=== PATIENT | male | born 1955 | race Caucasian/White ===

== ENCOUNTER → 2022-09-05 | Outpatient (CLI) | payer OTHER ==
--- NOTE | 2022-09-05 16:38 | Diagnostic Imaging Report ---
PROCEDURE: US Scrotum. TECHNIQUE: Multiple Real-time grayscale images were obtained over the scrotum in various projections bilaterally. INDICATION: Scrotal mass. FINDINGS: The right testicle measures 4.1 x 2.5 x 2.6 cm and the left testicle measures 3.9 x 2.4 x 2.7 cm. Both testes show homogeneous echotexture. No discrete testicular mass is detected. There is blood flow to both testes. The epididymides are unremarkable bilaterally. There are small bilateral hydroceles. No varicoceles are seen. There is a large echogenic masslike area superior to the left testicle measuring 5.9 x 3.0 x 3.8 cm. This does appear to be outside of the testicle. There does appear to be some internal vascularity as well. No other abnormalities are seen. IMPRESSION: 1. No evidence of testicular mass or vascular compromise. 2. Small bilateral hydroceles. 3. An echogenic mass superior to the left testicle is indeterminate. The possibility of herniated tissue would be a consideration. No definite herniated bowel loops are identified. CT may be useful for better characterization. Dictated by: Dictated on workstation # [id number]
== END ==
LOC: RAD 13:15
DX: Z01.89 Encounter for other specified special examinations (principal); N43.3 Hydrocele, unspecified; N50.9 Disorder of male genital organs, unspecified
CPT/HCPCS: 76870

== ENCOUNTER 2023-02-07 15:01 | Emergency (ER) | payer OTHER ==
[~2023-02-07] VITALS: Ht 170 cm; Wt 104.3 kg
--- NOTE | 2023-02-07 15:38 | ED Lower Extremity ---
General Chief Complaint: Lower Extremity Stated Complaint: LT KNEE INJ | Nursing Triage Note: pt presents to ed via pov from home with complaints of l knee pain after falling on it in the garage when he tripped. Source: patient Exam Limitations: no limitations History of Present Illness Date Seen by Provider: Feb 07, 2023 Time Seen by Provider: 15:36 Initial Comments Patient is a 67-year-old male who presents to ED with left knee pain. Pain started after he fell on his left knee Sunday in the garage. States he was getting around his truck when he tripped and fell landing on the left knee. Had immediate pain with swelling. Denies any bruises or redness. Pain appears to be worse with flexion of the knee. Pain located to the left lateral knee. Significant swelling noted. History of arthritic knees according to patient. Has been taking the Naprosyn with very minimal improvement. Denies any distal numbness and tingling, nausea, vomit, diarrhea fever, chills. Allergies and Home Medications Allergies Coded Allergies: No Known Drug Allergies (Unverified , 02/07/23) Patient Home Medication List Home Medication List Reviewed: Yes Review of Systems Constitutional: No chills, No diaphoresis, No malaise, No weakness EENTM: No ear pain, No blurred vision, No double vision Cardiovascular: No chest pain, No edema Gastrointestinal: No constipation, No diarrhea, No vomiting Genitourinary: No decreased output, No discharge Musculoskeletal: No back pain; joint pain, joint swelling; No muscle pain, No muscle stiffness Skin: No change in color All Other Systems Reviewed Negative Unless Noted: Yes Past Tggpdzn-Zzsycy-Xfwmgc Hx Patient Social History Tobacco Use?: No Substance use?: No Alcohol Use?: Yes Alcohol Frequency: Once in a while Pt feels they are or have been: No Past Medical History Surgery/Hospitalization HX: pmh: dm2, neuropathy, htn, high chol Physical Exam Vital Signs Vital Signs - First Documented 02/07/23 02/07/23 15:27 16:10 Temp 37.0 Pulse 54 Resp 18 B/P (MAP) 170/82 (111) Pulse Ox 94 O2 Delivery Room Air Capillary Refill : Less Than 3 Seconds Height, Weight, BMI Height: '" Weight: lbs. oz. kg; 36.00 BMI Method: General Appearance: WD/WN, no apparent distress HEENT: PERRL/EOMI, normal ENT inspection, TMs normal, pharynx normal Neck: non-tender, full range of motion, supple, normal inspection Cardiovascular: regular rate, rhythm, no edema, no gallop, no JVD Respiratory: chest non-tender, lungs clear, normal breath sounds, no respiratory distress, no accessory muscle use Gastrointestinal: normal bowel sounds, non tender, soft, no organomegaly Knees: left knee pain (Left lateral knee tenderness.), left knee soft tissue tenderness, left knee swelling, left knee other (No laxity with valgus or varus stress. Negative anterior posterior drawer test. Negative Ruben test) Ankles: bilateral ankle non-tender, bilateral ankle normal inspection, bilat eral ankle normal range of motion Feet: bilateral foot non-tender, bilateral foot normal inspection, bilateral foot normal range of motion Neurologic/Tendon: normal sensation, normal motor functions, normal tendon functions Progress/Results/Core Measures Results/Orders My Orders Orders - SEBASTIAN SPRAGUE Knee, Left, 3 Views (02/07/23 15:33) Vital Signs/I&O 02/07/23 02/07/23 15:27 16:10 Temp 37.0 37.0 Pulse 54 57 Resp 18 18 B/P (MAP) 170/82 (111) 164/76 Pulse Ox 94 96 O2 Delivery Room Air Blood Pressure Mean: 111 Departure Communication (PCP) Patient presents ED with left knee pain. Pain located to the left outer and upper knee. Flexion to 90 degrees with full extension. No laxity with valgus or varus stress. Negative anterior posterior drawer test. Did have appear to be soft tissue swelling. X-ray read by myself did not show any acute fracture. Radiologist did not note any acute fracture. Patient refusing thing for pain. Has been taken naproxen. Denies applying ice. Ice was applied. Has been using Edgar wrap for comfort. Feels like the knee wants to give out. Did note some arthritic changes of the left knee. Mechanism of injury does not suggest meniscus or ligament injury. Once again exam was otherwise benign with range of motion and assessment of the ligaments. Suspect more soft tissue secondary to the fall. Potential aggravation of his arthritis. If he is still continue having pain over the next 1 to 2 weeks be warranted to follow-up with orthopedic for further evaluation. May benefit with a intra-articular injection and or a re x-ray to rule out occult fracture. Bear weight as tolerated. Range of motion exercises. Return precaution were discussed Impression Primary Impression: Knee pain Disposition: 01 HOME, SELF-CARE Condition: Stable Departure-Patient Inst. Decision time for Depature: 16:05 Referrals: NO,LOCAL PHYSICIAN (PCP) Primary Care Physician NICKO DUARTE MD Patient Instructions: Knee Pain Add. Discharge Instructions: Recommend an Edgar wrap or knee brace to help for support. Ice 3-4 times throughout the day for the next 3 to 4 days help with swelling, elevate knee at night. Range of motion exercises. Anti-inflammatories. If continued pain over the next few weeks recommend orthopedic outpatient follow-up. All discharge instructions reviewed with patient and/or family. Voiced understanding. SEBASTIAN SPRAGUE Feb 07, 2023 15:38
--- NOTE | 2023-02-07 15:53 | Diagnostic Imaging Report ---
INDICATION: Fall with left knee injury and pain in the lateral portion of the left knee. TIME OF EXAM: 03:52 p.m. FINDINGS: Three views of the left knee demonstrate normal alignment. Joint spaces are fairly well maintained apart from very mild medial compartmental narrowing. The articular surfaces are smooth. No fracture, dislocation or effusion is identified. IMPRESSION: Mild degenerative changes. No acute bony abnormality is detected. Dictated by: Dictated on workstation # [id number]
[2023-02-07 16:10] VITALS: BP 164/76
== END 2023-02-07 16:11 | disposition home or self-care (01) ==
LOC: EDUNIT# 15:01 → ER 15:04
DX: M25.562 Pain in left knee (principal); W01.0XXA Fall on same level from slipping, tripping and stumbling without subsequent striking against object, initial encounter; Y92.59 Other trade areas as the place of occurrence of the external cause
CPT/HCPCS: 73562

== ENCOUNTER → 2023-03-23 | Outpatient (CLI) | payer OTHER ==
--- NOTE | 2023-03-23 15:02 | Diagnostic Imaging Report ---
MRI LT LOWER EXT JOINT W/O TECHNIQUE: Multiplanar, multisequence MR imaging of the left knee was performed without contrast. COMPARISON: None available. INDICATION: Left knee pain FINDINGS: MENISCI Medial meniscus: Normal. Lateral meniscus: Complex tear at the anterior horn of the medial meniscus extending into the anterior root. Partial extrusion of the lateral body into the gutter. LIGAMENTS ACL: Intact. PCL: Intact. MCL: Intact. LCL: The lateral collateral ligamentous complex is intact. EXTENSOR MECHANISM The extensor mechanism is intact. CARTILAGE Medial compartment: Medial compartment articular cartilage is well preserved without focal high-grade chondromalacia. Lateral compartment: The lateral compartment articular cartilage is preserved without high-grade chondromalacia. Patellofemoral compartment: Full-thickness chondral fissuring in the central trochlear groove. BONE No fracture, stress fracture or osteonecrosis. SOFT TISSUE Small knee joint effusion. No Marcelino's cyst. IMPRESSION: 1. Complex macerated tear at the anterior horn of the lateral meniscus causes partial extrusion of the body into the lateral gutter. 2. Full-thickness chondral fissuring at the central trochlear groove. Otherwise, the remainder of the articular cartilage of the knee is well-preserved. Dictated by: Dictated on workstation # [id number]
== END ==
LOC: RAD 13:15
DX: Z01.89 Encounter for other specified special examinations (principal); S83.282A Other tear of lateral meniscus, current injury, left knee, initial encounter
CPT/HCPCS: 73721

== ENCOUNTER → 2023-04-11 | Outpatient (CLI) | payer OTHER ==
[~2023-04-11] MED LIST: ACHD5005 PO; DOXA8TAB73 PO; FINA5TAB6 PO; GABA300C PO; GLIP5TAB13 PO; INSU100V42 SQ; INSU100V52 SQ; LATA2.5D22 OP; LISI40TA9 PO; LOVA40TA2 PO; METF-397 PO; NAPR220C11 PO; NIAC500T92 PO; OMEP20CA18 PO; TIMO5DRO31 OP; VALA500T7 PO
== END ==
LOC: ORTHO 10:43
PROVIDERS: ATTEND Orthopaedic Surgery
DX: S83.282A Other tear of lateral meniscus, current injury, left knee, initial encounter (principal)
CPT/HCPCS: 99203

== ENCOUNTER 2023-04-12 05:30 | Outpatient (CLI) | payer OTHER ==
[~2023-04-12] VITALS: Ht 170.2 cm; Wt 101.8 kg
[2023-04-12] MEDS ORDERED: NAPR220C11 PO (10:03)
[2023-04-12] MEDS ORDERED: GLIP5TAB13 PO (10:03)
[2023-04-12] MEDS ORDERED: FINA5TAB6 PO (10:03)
[2023-04-12] MEDS ORDERED: INSU100V42 SQ (10:03)
[2023-04-12] MEDS ORDERED: GABA300C PO (10:03)
[2023-04-12] MEDS ORDERED: DOXA8TAB73 PO (10:03)
[2023-04-12] MEDS ORDERED: ACHD5005 PO (10:03)
[2023-04-12] MEDS ORDERED: LOVA40TA2 PO (10:04)
[2023-04-12] MEDS ORDERED: LATA2.5D22 OP (10:04)
[2023-04-12] MEDS ORDERED: VALA500T7 PO (10:04)
[2023-04-12] MEDS ORDERED: METF-397 PO (10:04)
[2023-04-12] MEDS ORDERED: OMEP20CA18 PO (10:04)
[2023-04-12] MEDS ORDERED: INSU100V52 SQ (10:04)
[2023-04-12] MEDS ORDERED: LISI40TA9 PO (10:04)
[2023-04-12] MEDS ORDERED: TIMO5DRO31 OP (10:04)
[2023-04-12] MEDS ORDERED: NIAC500T92 PO (10:04)
== END 2023-04-12 10:11 | disposition home or self-care (01) ==
LOC: PREOP 05:30
PROVIDERS: ATTEND Orthopaedic Surgery
DX: Z01.818 Encounter for other preprocedural examination (principal)

== ENCOUNTER 2023-04-16 05:50 | Day surgery (SDC) | payer OTHER ==
[~2023-04-16] VITALS: Ht 170.2 cm; Wt 101.8 kg
[2023-04-16] VITALS (12 sets, daily range): BP systolic 99–126; BP diastolic 60–74
[2023-04-16] MEDS ORDERED: LACTATED RINGERS 1,000 ML IV PRN (06:00)
[2023-04-16] MEDS ORDERED: ceFAZolin INJECTION 2,000 MG in NS (IVPB) 50 ML IV ONE (06:00)
[2023-04-16] MEDS ORDERED: LIDOCAINE PF 2% 5 ML (XYLOCAINE) VIAL ONE (07:03)
[2023-04-16] MEDS ORDERED: fentaNYL INJ 100 MCG/2 ML AMP ONE (07:03)
[2023-04-16] MEDS ORDERED: proPOfol 200 MG/20 ML (DIPRIVAN) VIAL IV ONE (07:03)
[2023-04-16] MEDS ORDERED: ONDANSETRON 4 MG/2 ML (SDV) Z0FRAN ONE (07:03)
[2023-04-16] MEDS ORDERED: MIDAZOLAM 2 MG/2 ML (VERSED) VIAL ONE (07:03)
[2023-04-16] MEDS ORDERED: SEVOFLURANE (ULTANE) 15 ML INHAL SOLN ONE (07:03)
[2023-04-16] MEDS ORDERED: BUP/EPI 0.25% 1:200,000 (MARCAINE) 30 ML VIAL ONE (07:24)
--- NOTE | 2023-04-16 07:50 | Progress Note-Pre Operative ---
Pre-Operative Progress Note Date of Available H&P: Apr 11, 2023 Date H&P Reviewed: Apr 16, 2023 Time H&P Reviewed: 07:40 History & Physical: H&P Reviewed, Patient Examed, No changes noted Pre-Operative Diagnosis: Left Knee Lateral Meniscus Tear JACKSON LANGFORD MD Apr 16, 2023 07:50
[2023-04-16] MEDS ORDERED: BUP/EPI 0.25% 1:200,000 (MARCAINE) 30 ML VIAL INJ ONE (08:23)
--- NOTE | 2023-04-16 08:41 | Operative Report - Ortho ---
Operative Report Surgeon (s)/Sales Analyst (s) Surgeon JACKSON LANGFORD MD Sales Analyst n/a Pre-Operative Diagnosis Left Knee Lateral Meniscus Tear Post-Operative Diagnosis same Operative Report Date of Procedure: Apr 16, 2023 Name of Procedure Performed: Left Knee Arthroscopy with Partial Lateral Meniscectomy Description & Findings After obtaining informed consent and marking the patient in the preoperative holding area, the patient was administered IV antibiotics and taken to the operating room. General anesthesia was induced. The right lower extremity was placed in the well leg szymanski and the left leg was placed in the arthroscopic szymanski. Surgical timeout was taken. The left lower extremity was prepped and draped in the usual sterile fashion. An anterolateral portal was established and a diagnostic knee arthroscopy was performed with the following findings: the patellofemoral portion of the joint demonstrated grade II change, the patella tracked well through the trochlear groove, the gutters were free of loose bodies, the medial meniscus was intact, grade II change in the medial compartment, ACL was intact, lateral compartment with complex, mobile tear of the anterior horn of the lateral meniscus and grade II articular cartilage change. An anteromedial portal was established. Probe was inserted and the lateral meniscal tear was explored. Shaver was inserted and the lateral meniscal tear was debrided back to a stable border. Probe was reinserted and confirmed that the mensicectomy was stable. Instruments were withdrawn. Wounds were closed with 3-0 nylon and dressed with xeroform, 4x4s, ABD, cast padding, and LJ wrap. Patient tolerated the procedure well and was stable to the recovery room. Anesthesia Type General Estimated Blood Loss minimal Specimen(s) collected/removed None JACKSON LANGFORD MD Apr 16, 2023 08:41
--- NOTE | 2023-04-16 09:08 | Anesthesia-General Post-Op ---
General Patient Condition Mental Status/LOC: Same as Preop Cardiovascular: Satisfactory Nausea/Vomiting: Absent Respiratory: Satisfactory Pain: Controlled Complications: Absent Post Op Complications Complications None Follow Up Care/Instructions Patient Instructions None needed. Anesthesia/Patient Condition Patient Condition Patient is doing well, no complaints, stable vital signs, no apparent adverse anesthesia problems. No complications reported per nursing. GONZALEZ DUDLEY CRNA Apr 16, 2023 09:08
[2023-04-16] MEDS ORDERED: ONDANSETRON 4 MG/2 ML (SDV) Z0FRAN IVP PRN (09:15)
[2023-04-16] MEDS ORDERED: fentaNYL INJ 100 MCG/2 ML AMP IVP ONE (09:15)
[2023-04-16] MEDS ORDERED: HYDROcodone/APAP 5 MG/325 MG (LORTAB) TAB PO NR (10:15)
== END 2023-04-16 10:43 | disposition home or self-care (01) ==
LOC: SDC 05:50
PROVIDERS: ATTEND Orthopaedic Surgery
DX: S83.282A Other tear of lateral meniscus, current injury, left knee, initial encounter (principal); G47.33 Obstructive sleep apnea (adult) (pediatric); Z99.81 Dependence on supplemental oxygen; Z87.891 Personal history of nicotine dependence
CPT/HCPCS: 87081

== ENCOUNTER → 2023-04-26 | Outpatient (CLI) | payer OTHER ==
[~2023-04-26] MED LIST changes: +DOCU-143 PO
== END ==
LOC: ORTHO 08:39
PROVIDERS: ATTEND Orthopaedic Surgery
DX: Z53.9 Procedure and treatment not carried out, unspecified reason (principal)

== ENCOUNTER 2023-05-16 06:20 | Outpatient (CLI) | payer OTHER ==
[~2023-05-16] VITALS: Ht 170.2 cm; Wt 102.5 kg
[~2023-05-16 06:20] MED LIST changes: -DOCU-143 PO
[2023-05-16] MEDS ORDERED: DOCU-143 PO (10:15)
== END 2023-05-16 10:25 ==
LOC: PREOP 06:20
PROVIDERS: ATTEND Internal Medicine
DX: Z01.818 Encounter for other preprocedural examination (principal)

== ENCOUNTER 2023-05-25 07:56 | Day surgery (SDC) | payer OTHER ==
--- NOTE | 2023-05-16 08:10 | HISTORY AND PHYSICAL ---
PANENDOSCOPY HISTORY AND PHYSICAL HISTORY OF PRESENT ILLNESS: The patient is a 67-year-old white male referred by the [facility] for panendoscopy. He has a history of colon polyps, last colonoscopy was 5 years ago. He has 2 previous colonoscopies, both of which reported precancerous polyps were removed. He reports at least a 10-year history of reflux that is required proton pump inhibitor therapy. There were several risk factors for [facility], requested EGD evaluation for this reason. He denies melena, dysphagia, or bright red blood per rectum or change in bowel habits. PAST MEDICAL HISTORY: Significant for type 2 diabetes, under good control with A1c under 7. He is insulin requiring, taking 35 units of Lantus at bedtime and 10 units of NovoLog before he has a history of peripheral neuropathy. [ ]. PAST SURGICAL HISTORY: Significant for bilateral inguinal herniorrhaphy done. He reports roughly 40 days ago. He then underwent arthroscopic surgery of the left knee 30 days ago in later May. He will be undergoing lipoma removal from his scrotum. The patient reports no known past history of coronary artery disease or cerebrovascular disease. SOCIAL HISTORY: The patient reports occasional moderate alcohol consumption. No smoking history. 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 FAMILY HISTORY: Father at the age 78 secondary to complications of cardiomyopathy. Mother of multiple myeloma at the age of 84, he has 6 siblings, one sister of uterine cancer at age 68, had one brother who suddenly at the age of 70 and other siblings are reportedly alive and well, no history of colon cancer that he is aware of or other GI tract malignancy. PHYSICAL EXAMINATION: GENERAL: Reveals a white male, appeared to be in no acute distress. VITAL SIGNS: Weight 226 pounds, blood pressure 110/74. HEENT: Unremarkable. NECK: Revealed no JVD, adenopathy or bruits. CHEST: Clear to auscultation. CARDIOVASCULAR: Reveals a regular rate and rhythm without murmur, S3, or S4. ABDOMEN: Soft, supple without mass, organomegaly, or tenderness. EXTREMITIES: No cyanosis, clubbing or edema. ASSESSMENT AND PLAN: The patient is being set up for panendoscopy due to the past history of colon polyps as well as a longstanding history of reflux with risk factors for Boyer's and no previous history of upper endoscopy requiring chronic PPI therapy for at least the last 10 years. Prep instructions were given and questions were answered. Job ID: [id number] DocumentID: [id number] Dictated Date: 05/08/2023 11:11:48 Cnp Date: 05/08/2023 11:37:00 Dictated By: SRIRAM BLUM MD
[~2023-05-25] VITALS: Ht 177 cm; Wt 102.5 kg
[2023-05-25 07:30] VITALS: BP 143/79
[~2023-05-25 07:56] MED LIST changes: +DOCU-143 PO
[2023-05-25] MEDS ORDERED: LACTATED RINGERS 1,000 ML IV STA (08:00)
--- NOTE | 2023-05-25 08:19 | Pre-Op Note & Conscious Sedat ---
Pre-Operative Progress Note Date H&P Reviewed: May 25, 2023 Time H&P Reviewed: 08:18 History & Physical: H&P Reviewed, Patient Examed, No changes noted Pre-Op Diagnosis: Screening and GERD Moderate Sedation PreProcedure ASA Score 2 Airway Lungs Heart ASA score ASA 1: a normal healthy patient ASA 2: a patient with a mild systemic disease (mid diabetes, controlled hypertension, obesity ASA 3: a patient with a severe systemic disease that limits activity (angina, COPD, prior Myocardial infarction) ASA 4: a patient with an incapacitating disease that is a constant threat to life (CHF, renal failure) ASA 5: a moribund patient not expected to survive 24 hrs. (ruptured aneurysm) ASA 6: a declared brain- patient whose organs are being harvested. For emergent operations, add the letter E after the classification Mallampati Classification Grade 2 Sedation Plan Analgesia, Amnesia, Plan communicated to team members, Discussed options with patient/fam, Discussed risks with patient/fam The patient is an appropriate candidate to undergo the planned procedure, sedation, and anesthesia. The patient immediately re-assessed prior to indication. SRIRAM BLUM MD May 25, 2023 08:19
[2023-05-25] MEDS ORDERED: PROPOFOL INJECTION 50 ML IV ONE (08:35)
[2023-05-25] MEDS ORDERED: MIDAZOLAM 2 MG/2 ML (VERSED) VIAL ONE (08:35)
[2023-05-25] MEDS ORDERED: GLYCOPYRROLATE INJ 0.2 MG/ML 2 ML VIAL ONE (08:41)
[2023-05-25 09:05] VITALS: BP 105/64
--- NOTE | 2023-05-25 09:07 | Progress Note-Post Operative ---
Post-Procedure Note Physician (s)/Drum Stock Clerk (s) Physician SRIRAM BLUM MD Pre-Procedure Diagnosis Pre-Procedure Diagnosis: Screening and GERD Post-Procedure Diagnosis Post-operative diagnosis: Prior to undergoing colonoscopy digital rectal evaluation was performed. Anal sphincter tone was normal and the perianal reflexes intact. the prostate is moderately enlarged and a nodular on digital inspection. No other abnormalities are noted on digital inspection of the anal canal or distal rectal vault. The colonoscope was then inserted into the rectum and under direct visualization advanced to the cecum. The cecum was notified by the indication of the ileocecal valve and cecal strap. Photographic documentation was obtained. A careful inspection was made as the colonoscope withdrawn. Findings grade 1 internal hemorrhoid complex was noted with no evidence for external hemorrhoids. The rectum was otherwise unremarkable. The sigmoid colon and descending colon splenic flexure transverse colon hepatic flexure were unremarkable. Present in the proximal ascending colon just distal and adjacent the ileocecal valve was a 3 to 4 cm lipoma. The cecum was unremarkable. A/P 1. No evidence for neoplasia was identified on today's procedure. Would advocate consideration for repeat screening colonoscopy in 10 years. 2. Digital evaluation the prostate was compatible with moderate BPH with no nodularity. 3. February 3 to 4 cm lipoma was noted in the proximal ascending colon adjacent the ileocecal valve. No evidence for diverticular disease was noted. SRIRAM BLUM MD May 25, 2023 09:07
[2023-05-25 09:10] VITALS: BP 105/64
[2023-05-25 09:26] VITALS: BP 105/64
--- NOTE | 2023-05-25 12:52 | Anesthesia-General Post-Op ---
MAC Patient Condition Mental Status/LOC: Same as Preop Cardiovascular: Satisfactory Nausea/Vomiting: Absent Respiratory: Satisfactory Pain: Controlled Complications: Absent Post Op Complications Complications None Follow Up Care/Instructions Patient Instructions None needed. Anesthesiology Discharge Order Discharge Order Patient is doing well, no complaints, stable vital signs, no apparent adverse anesthesia problems. No complications reported per nursing. JACKSON KOLB CRNA May 25, 2023 12:52
== END 2023-05-25 10:12 | disposition home or self-care (01) ==
LOC: ENDO 07:56
PROVIDERS: ATTEND Internal Medicine
DX: Z12.11 Encounter for screening for malignant neoplasm of colon (principal); D17.5 Benign lipomatous neoplasm of intra-abdominal organs; K64.0 First degree hemorrhoids; K21.9 Gastro-esophageal reflux disease without esophagitis; N40.0 Benign prostatic hyperplasia without lower urinary tract symptoms; G47.33 Obstructive sleep apnea (adult) (pediatric); Z99.81 Dependence on supplemental oxygen; Z87.891 Personal history of nicotine dependence

== ENCOUNTER → 2023-05-30 | Outpatient (CLI) | payer OTHER | LOC: ORTHO 09:49 | PROVIDERS: ATTEND Orthopaedic Surgery | DX: Z47.89 Encounter for other orthopedic aftercare (principal) ==